=== PATIENT | female | born 1995 | race African-American/Black ===

== ENCOUNTER 2017-10-21 19:13 | Emergency (ER) | payer SELFPAY ==
[~2017-10-21] VITALS: Ht 165.1 cm; Wt 70.8 kg
[2017-10-21] MEDS ORDERED: XYZAL5 MG PO (21:15)
[2017-10-21] MEDS ORDERED: NASONEX17 GM (21:15)
[2017-10-21 21:21] VITALS: BP 122/70
== END 2017-10-21 21:20 | disposition home or self-care (01) ==
LOC: FSED 19:13
DX: R06.09 Other forms of dyspnea (principal); R07.89 Other chest pain
CPT/HCPCS: 71046; 93005; 99283